=== PATIENT | female | born 1980 | race African-American/Black ===

== ENCOUNTER 2018-03-12 13:12 | Emergency (ER) | payer BC, OTHER ==
[~2018-03-12] VITALS: Ht 162.6 cm; Wt 119.3 kg
[2018-03-12] MEDS ORDERED: MOBIC15 MG PO (14:59)
[2018-03-12] MEDS ORDERED: DAYTIME COU5 MG/5 ML PO (15:08)
[2018-03-12] MEDS ORDERED: DIOVAN 80 MG TA80 M1 PO (15:08)
[2018-03-12] MEDS ORDERED: TESSALON PERLE100 MG PO (15:08)
[2018-03-12 15:11] VITALS: BP 152/89
== END 2018-03-12 15:08 | disposition home or self-care (01) ==
LOC: ER 13:12
DX: S80.02XA Contusion of left knee, initial encounter (principal); S50.312A Abrasion of left elbow, initial encounter; J06.9 Acute upper respiratory infection, unspecified; M25.511 Pain in right shoulder; I10 Essential (primary) hypertension; W18.39XA Other fall on same level, initial encounter; Y92.89 Other specified places as the place of occurrence of the external cause; Y93.89 Activity, other specified; Y99.8 Other external cause status